=== PATIENT | male | born 1990 | race African-American/Black ===

== ENCOUNTER 2018-12-02 01:53 | Emergency (ER) | payer OTHER, SELFPAY ==
[~2018-12-02] VITALS: Ht 182.9 cm; Wt 81.6 kg
[~2018-12-02 01:53] MED LIST: IBUPROFEN600 MG ORAL; NKM; NORCO 10/3251 EA ORAL
[2018-12-02 02:10] VITALS: BP 144/92
--- NOTE | 2018-12-02 02:10 | NUR ---
ED Nurse Note: Patient was brought by RA from home due to ETOH. Per patient he mixed bottle of vine with bottle of vodka and drink it all. AAO x4, VSS at this time, skin is intact, warm to touch. Patient complaining of N/V, dizziness.
[2018-12-02 02:14] LABS: BASOPHILS % (AUTO) 0.8 % (0.0-2.0); EOSINOPHILS % (AUTO) 0.2 % (0.0-3.0); HEMATOCRIT 45.1 % (42.0-52.0); HEMOGLOBIN 15.3 G/DL (14.2-18.0); MEAN CORPUSCULAR VOLUME 88 FL (80-99); MONOCYTES % (AUTO) 6.3 % (1.0-10.0); NEUTROPHILS % (AUTO) 62.7 % (45.0-75.0); PLATELET COUNT 278 K/UL (150-450); RED BLOOD COUNT 5.13 M/UL (4.70-6.10); RED CELL DISTRIBUTION WIDTH 12.4 % (11.6-14.8); WHITE BLOOD COUNT 13.3 K/UL (4.8-10.8)
[2018-12-02 02:22] LABS: ANION GAP 14 mmol/L (5-15); BLOOD UREA NITROGEN 13 mg/dL (7-18); CALCIUM 8.6 MG/DL (8.5-10.1); CARBON DIOXIDE 24 MMOL/L (21-32); CHLORIDE 101 MMOL/L (98-107); POTASSIUM 3.9 MMOL/L (3.5-5.1); SODIUM 139 MMOL/L (136-145)
[2018-12-02 02:27] LABS: ALANINE AMINOTRANSFERASE 46 U/L (12-78); ALBUMIN 4.4 G/DL (3.4-5.0); ALBUMIN/GLOBULIN RATIO 1.2 (1.0-2.7); ALKALINE PHOSPHATASE 79 U/L (46-116); ASPARTATE AMINO TRANSFERASE 41 U/L (15-37); BILIRUBIN,TOTAL 0.7 MG/DL (0.2-1.0)
--- NOTE | 2018-12-02 03:41 | NUR ---
ED Nurse Note: RECEIVED VERBAL ORDER FROM ERMD FOR ZOFRAN 4MG IVP. NOTED AND CARRIED OUT.
[2018-12-02] MEDS ORDERED: RANITIDINE HCL150 MG ORAL (05:07)
[2018-12-02] MEDS ORDERED: ONDANSETRON ODT4 MG BC (05:07)
[2018-12-02] MEDS ORDERED: Dicyclomine HCl 10mg/5ml oral soln ORAL ONE (05:15)
[2018-12-02] MEDS ORDERED: Lidocaine 2% Visc 15ml soln ORAL ONE (05:15)
[2018-12-02] MEDS ORDERED: Mylanta II UD 30ml ORAL ONE (05:15)
--- NOTE | 2018-12-02 05:37 | Emergency Room Report ---
History of Present Illness General Chief Complaint: Alcohol Intoxication Source: Patient Present Illness HPI 28-year-old male presents ED for evaluation. Brought by EMS for alcohol intoxication. Admits to drinking tequila tonight. Presenting with nausea and vomiting. Feeling weak and dehydrated. Denies any abdominal pain. Denies any fevers or chills. Denies drug use. No other aggravating relieving factors. Denies any other associated symptoms Allergies: Coded Allergies: No Known Allergies (Unverified , 12/10/13) Patient History Past Medical History: none Past Surgical History: none Pertinent Family History: none Social History: Reports: alcohol use; Denies: smoking, drug use Immunizations: UTD Reviewed Nursing Documentation: PMH: Agreed; PSxH: Agreed Nursing Documentation-PMH Past Medical History: No Stated History Review of Systems All Other Systems: negative except mentioned in HPI Physical Exam Vital Signs Date Time Temp Pulse Resp B/P (MAP) Pulse Ox O2 Delivery O2 Flow Rate FiO2 12/02/18 01:46 98.1 100 14 97 12/02/18 02:10 144/92 Sp02 EP Interpretation: reviewed, normal General Appearance: GCS 15, non-toxic, lethargic Head: normocephalic, atraumatic Eyes: bilateral eye normal inspection, bilateral eye PERRL ENT: hearing grossly normal, normal pharynx, no angioedema, normal voice Neck: full range of motion, supple/symm/no masses Respiratory: chest non-tender, lungs clear, normal breath sounds, speaking full sentences Cardiovascular #1: regular rate, rhythm, no edema Cardiovascular #2: 2+ carotid (R), 2+ carotid (L), 2+ radial (R), 2+ radial (L) , 2+ dorsalis pedis (R), 2+ dorsalis pedis (L) Gastrointestinal: normal bowel sounds, non tender, soft, non-distended, no guarding, no rebound Rectal: deferred Genitourinary: normal inspection, no CVA tenderness Musculoskeletal: back normal, gait/station normal, normal range of motion, non- tender Neurologic: alert, oriented x3, responsive, motor strength/tone normal, sensory intact, speech normal Psychiatric: judgement/insight normal, memory normal, mood/affect normal, no suicidal/homicidal ideation Reflexes: 3+ bicep (R), 3+ bicep (L), 3+ tricep (R), 3+ tricep (L), 3+ knee (R) , 3+ knee (L) Skin: normal color, no rash, warm/dry, well hydrated Lymphatic: no adenopathy Medical Decision Making Diagnostic Impression: Primary Impression: Alcohol intoxication Qualified Codes: F10.929 - Alcohol use, unspecified with intoxication, unspecified Additional Impression: Gastritis Qualified Codes: K29.20 - Alcoholic gastritis without bleeding ER Course Hospital Course 28-year-old M presents to ED with nausea and vomiting after alcohol use differential diagnosis: gastritis, SBO, cholecystits Clinical course Patient placed on stretcher. On mechanical [employer] lab[employer]. After initial history and physical I ordered labs, IV fluids, Zofran and pepcid Labs - no leukocytosis, no electrolyte abnormalities, LFTs normal, ETOH elevated On reassessment patient feels better. Clinically sober. Allowed to rest. Tolerating by mouth intake. Discussed findings with patient. Safe for discharge with close outpatient follow-up. We'll provide prescriptions for Zantac and Zofran. We'll provide PMD referrals I feel this is a highly complex case requiring extensive working including EKG/ Rhythm strip, Xray/CT/US, Blood/urine lab work, repeat exams while in ED, and administration of strong opiates/narcotics for pain control, admission to hospital or close patient follow up. Diagnosis - alcohol intoxication, gastritis Stable and discharged to home with prescriptions for Zantac, zantac. Followup with PMD. Return to ED if symptoms recur or worsen Labs Test 12/02/18 02:05 White Blood Count 13.3 K/UL (4.8-10.8) Red Blood Count 5.13 M/UL (4.70-6.10) Hemoglobin 15.3 G/DL (14.2-18.0) Hematocrit 45.1 % (42.0-52.0) Mean Corpuscular Volume 88 FL (80-99) Mean Corpuscular Hemoglobin 29.9 PG (27.0-31.0) Mean Corpuscular Hemoglobin Concent 34.0 G/DL (32.0-36.0) Red Cell Distribution Width 12.4 % (11.6-14.8) Platelet Count 278 K/UL (150-450) Mean Platelet Volume 7.7 FL (6.5-10.1) Neutrophils (%) (Auto) 62.7 % (45.0-75.0) Lymphocytes (%) (Auto) 30.0 % (20.0-45.0) Monocytes (%) (Auto) 6.3 % (1.0-10.0) Eosinophils (%) (Auto) 0.2 % (0.0-3.0) Basophils (%) (Auto) 0.8 % (0.0-2.0) Sodium Level 139 MMOL/L (136-145) Potassium Level 3.9 MMOL/L (3.5-5.1) Chloride Level 101 MMOL/L (98-107) Carbon Dioxide Level 24 MMOL/L (21-32) Anion Gap 14 mmol/L (5-15) Blood Urea Nitrogen 13 mg/dL (7-18) Creatinine 1.0 MG/DL (0.55-1.30) Estimat Glomerular Filtration Rate > 60 mL/min (>60) Glucose Level 125 MG/DL (74-106) Calcium Level 8.6 MG/DL (8.5-10.1) Total Bilirubin 0.7 MG/DL (0.2-1.0) Aspartate Amino Transf (AST/SGOT) 41 U/L (15-37) Alanine Aminotransferase (ALT/SGPT) 46 U/L (12-78) Alkaline Phosphatase 79 U/L (46-116) Total Protein 8.0 G/DL (6.4-8.2) Albumin 4.4 G/DL (3.4-5.0) Globulin 3.6 g/dL Albumin/Globulin Ratio 1.2 (1.0-2.7) Salicylates Level 1.8 ug/mL (2.8-20) Acetaminophen Level < 2 MCG/ML (10-30) Serum Alcohol 134 mg/dL Last Vital Signs Date Time Temp Pulse Resp B/P (MAP) Pulse Ox O2 Delivery O2 Flow Rate FiO2 12/02/18 02:10 100 14 12/02/18 02:10 98.1 144/92 97 Status: improved Disposition: HOME, SELF-CARE Condition: Stable Scripts Ondansetron Odt* (ZOFRAN ODT*) 4 Mg Tab.rapdis 4 MG BC EVERY 6 HOURS PRN for Nausea & Vomiting, #20 TAB 0 Refills Prov: Rich Tran MD 12/02/18 Ranitidine Hcl* (ZANTAC*) 150 Mg Tablet 150 MG ORAL TWICE A DAY, #30 TAB Prov: Rich Tran MD 12/02/18 Referrals: Otis [facility]. [facility] Patient Instructions: Alcohol Intoxication Rich Tran MD December 02, 2018 05:37
[2018-12-02 05:42] VITALS: BP 144/92
--- NOTE | 2018-12-02 05:56 | NUR ---
ER DISCHARGE NOTE: Patient is cleared to be discharged per ERMD, pt is aox4, on room air, with stable vital signs. pt was given dc and prescription instructions, pt was able to verbalize understanding, pt id band and iv site removed without complications. pt is able to ambulate with steady gait. pt took all belongings.
== END 2018-12-02 05:45 | disposition home or self-care (01) ==
LOC: EDBD 01:53 → EMR 03:00
DX: F10.129 Alcohol abuse with intoxication, unspecified (principal); K29.20 Alcoholic gastritis without bleeding; R11.2 Nausea with vomiting, unspecified
CPT/HCPCS: 36415; 80053; 80329; 85025; 96361; 96374; 96375; 96376; 99285; J2405; S0028